=== PATIENT | male | born 1970 | race Caucasian/White ===

== ENCOUNTER 2024-09-29 08:50 | Emergency (ER) | payer BC ==
[2024-09-29 09:13] LABS: BASOPHILS ABSOLUTE AUTO 0.01 10^3/uL (0.00-0.10); BASOPHILS PERCENT AUTO 0.1 % (0.0-1.0); EOSINOPHILS ABSOLUTE AUTO 0.00 10^3/uL (0.10-0.30); EOSINOPHILS PERCENT AUTO 0.0 % (1.0-3.0); IMMATURE GRAN ABSOLUTE AUTO 0.11 10^3/uL (0.00-0.04); IMMATURE GRAN PERCENT AUTO 0.6 % (0.0-0.4); LYMPHOCYTES ABSOLUTE AUTO 1.12 10^3/uL (1.00-4.00); LYMPHOCYTES PERCENT AUTO 6.4 % (20.0-40.0); MEAN PLATELET VOLUME 8.7 fL (7.4-10.4); MONOCYTES ABSOLUTE AUTO 0.87 10^3/uL (0.10-0.80); MONOCYTES PERCENT AUTO 4.9 % (2.0-8.0); NEUTROPHILS ABSOLUTE AUTO 15.50 10^3/uL (2.50-7.00); NEUTROPHILS PERCENT AUTO 88.0 % (50.0-70.0); PLATELET COUNT,PLT 168 10^3/uL (150-400); RED BLOOD CELL COUNT 5.00 10^6/uL (4.50-6.00); RED CELL DISTRIBUTION WIDTH 12.2 % (11.5-14.5); WHITE BLOOD CELL COUNT,WBC 17.61 10^3/uL (5.00-10.00)
[2024-09-29 09:29] LABS: ALANINE AMINOTRANSFERASE,ALT 33.0 U/L (14-63); ASPARTATE AMNIOTRANSFERASE,AST 18.0 U/L (15-37); BILIRUBIN TOTAL 1.7 mg/dL (0.2-1.0); BLOOD UREA NITROGEN,BUN 13.0 mg/dL (7-18); CARBON DIOXIDE,CO2 27.2 mmol/L (21.0-32.0); CHLORIDE,CL 93.0 mmol/L (98-107); CREATININE 1.15 mg/dL (0.51-1.17); EST CRCL DRUG DOSING (CG) 76.7 mL/min; ESTIMATED GFR 76.0 mL/min (>=60); GLUCOSE RANDOM 147.0 mg/dL (70-140); POTASSIUM,K 4.0 mmol/L (3.5-5.1); PROTEIN TOTAL,TP 7.9 g/dL (6.4-8.2); SODIUM,NA 130.0 mmol/L (136-145)
[2024-09-29] MEDS: Iopamidol 755 Mg/ML 100 ML Bottle IV ONE (09:59)
[2024-09-29] MEDS: metroNIDAZOLE/Normal Saline 500 MG in Premix Bag 1 BAG IV SCH (10:50)
[2024-09-29] MEDS: Ondansetron 4 MG/2 ML SDV IVPUSH ONE (10:58)
== END 2024-09-29 11:20 ==
LOC: KA.ED 08:50
DX: K35.32 Acute appendicitis with perforation, localized peritonitis, and gangrene, without abscess (principal); R79.82 Elevated C-reactive protein (CRP); D72.829 Elevated white blood cell count, unspecified
CPT/HCPCS: 36415; 74177; 80053; 83605; 83690; 85025; 86140; 87040; 96365; 96375; 99284; 99285-25; J0692; J1836; J7030; Q9967

== ENCOUNTER 2024-10-17 08:31 | Emergency (ER) | payer BC ==
[2024-10-17 08:50] LABS: BASOPHILS ABSOLUTE AUTO 0.02 10^3/uL (0.00-0.10); BASOPHILS PERCENT AUTO 0.3 % (0.0-1.0); EOSINOPHILS ABSOLUTE AUTO 0.10 10^3/uL (0.10-0.30); EOSINOPHILS PERCENT AUTO 1.4 % (1.0-3.0); IMMATURE GRAN ABSOLUTE AUTO 0.01 10^3/uL (0.00-0.04); IMMATURE GRAN PERCENT AUTO 0.1 % (0.0-0.4); LYMPHOCYTES ABSOLUTE AUTO 1.76 10^3/uL (1.00-4.00); LYMPHOCYTES PERCENT AUTO 25.4 % (20.0-40.0); MEAN PLATELET VOLUME 8.9 fL (7.4-10.4); MONOCYTES ABSOLUTE AUTO 0.50 10^3/uL (0.10-0.80); MONOCYTES PERCENT AUTO 7.2 % (2.0-8.0); NEUTROPHILS ABSOLUTE AUTO 4.55 10^3/uL (2.50-7.00); NEUTROPHILS PERCENT AUTO 65.6 % (50.0-70.0); PLATELET COUNT,PLT 277 10^3/uL (150-400); RED BLOOD CELL COUNT 4.59 10^6/uL (4.50-6.00); RED CELL DISTRIBUTION WIDTH 12.0 % (11.5-14.5); WHITE BLOOD CELL COUNT,WBC 6.94 10^3/uL (5.00-10.00)
[2024-10-17 09:04] LABS: ALANINE AMINOTRANSFERASE,ALT 48.0 U/L (14-63); ASPARTATE AMNIOTRANSFERASE,AST 25.0 U/L (15-37); BILIRUBIN TOTAL 0.6 mg/dL (0.2-1.0); BLOOD UREA NITROGEN,BUN 15.0 mg/dL (7-18); CARBON DIOXIDE,CO2 29.5 mmol/L (21.0-32.0); CHLORIDE,CL 102.0 mmol/L (98-107); CREATININE 0.97 mg/dL (0.51-1.17); EST CRCL DRUG DOSING (CG) 90.94 mL/min; GLUCOSE RANDOM 114.0 mg/dL (70-140); POTASSIUM,K 4.4 mmol/L (3.5-5.1); PROTEIN TOTAL,TP 8.1 g/dL (6.4-8.2); SODIUM,NA 141.0 mmol/L (136-145)
[2024-10-17 09:05] LABS: ESTIMATED GFR 93.0 mL/min (>=60)
[2024-10-17 10:16] LABS: APPEARANCE,URINE CLEAR (CLEAR); GLUCOSE,URINE NEGATIVE (NEGATIVE)
[2024-10-17 10:17] LABS: EPITHELIAL CELLS,URINE RARE /LPF; OCCULT BLOOD,URINE TRACE-INTACT (NEGATIVE)
== END 2024-10-17 10:07 | disposition home or self-care (01) ==
LOC: KA.ED 08:31
DX: K59.01 Slow transit constipation (principal); Z79.899 Other long term (current) drug therapy; Z90.49 Acquired absence of other specified parts of digestive tract
CPT/HCPCS: 36415; 74018; 80053; 81001; 85025; 99283